=== PATIENT | male | born 1950 ===

== ENCOUNTER 2018-12-21 02:58 | Emergency (ER) | payer OTHER ==
--- OUTSIDE RECORDS SUMMARY | 2018-12-21 03:01 | XMS REPORT | Summary of Care ---
:1950 Author Organization [facility] Address [address] [place] [id number]- Encounter HQ Kehinde_garfield(FIN) [id number] Date(s): 01/17/17 - 01/17/17 [facility] [address] [address]- [phone] Discharge Disposition: Home or Self Care Attending Physician: Brent Benitez MD Referring Physician: Brent Benitez MD Vital Signs Most recent to oldest 1 2 3 [Reference Range]: Height 167.64 cm (01/15/17 10:00 AM) Blood Pressure [90-140/60-90 144/81 mmHg 142/80 mmHg 131/83 mmHg mmHg] *HI* *HI* (01/17/17 1:00 PM) (01/17/17 2:00 PM) (01/17/17 1:30 PM) Respiratory Rate [14-20 16 BRMIN 16 BRMIN 16 BRMIN BRMIN] (01/17/17 2:00 PM) (01/17/17 1:30 PM) (01/17/17 1:00 PM) Peripheral Pulse Rate 65 bpm 71 bpm 68 bpm [60-100 bpm] (01/17/17 10:51 AM) (01/17/17 10:46 AM) (01/17/17 10:41 AM) Weight 72.727 kg (01/15/17 10:00 AM) Body Mass Index 25.88 m2 (01/15/17 10:00 AM) Problem List Condition Effective Dates Status Health Status Informant Ankle fracture(Confirmed)1 Resolved Hypercholesteremia(Confirmed)2 Active Arthritis(Confirmed) Resolved Skin cancer(Confirmed) Resolved [id number]'t take anything for it Allergies, Adverse Reactions, Alerts Substance Reaction Severity Status NKDA Active Medications Ancef 2 gm, 100 mL, Route: IVPB, Drug form: INJ, ONCE, Dosing Weight 72.727, kg, Start date: 01/17/17 8:35:00 CDT, Duration: 1 doses or times, Stop date: 8:35:00 CDT, Surgical Prophylaxis Only; For patients < 120 kg, ABX Indication: Surgical Prophy... Notes: Same as: Ancef Start Date: 01/17/17 Stop Date: 01/17/17 Status: CompletedANES flumazenil 0.2 mg, 2 mL, Route: IVP, Drug form: INJ, PRN, Dosing Weight 72.727, kg, PRN Benzodiazepine Reversal, Initial dose, Start date: 01/17/17 10:23:00 CDT, Duration: 8 hr, Stop date: 01/17/17 18:22:00 CDT Notes: (Same as: Romazicon) Start Date: 01/17/17 Stop Date: 01/17/17 Status: CompletedANES HYDROmorphone 0.5 mg, 0.25 mL, Route: IVP, Drug form: INJ, Q5Min, Dosing Weight 72.727, kg, PRN Pain Score 7-10, Start date: 01/17/17 10:23:00 CDT, Duration: 4 doses or times, Stop date: 01/17/17 18:22:00 CDT Notes: Same as: Dilaudid Start Date: 01/17/17 Stop Date: 01/17/17 Status: CompletedANES meperidine 12.5 mg, 0.5 mL, Route: IVP, Drug form: INJ, Q30Min, Dosing Weight 72.727, kg, PRN Other -See Comment, For shivering, Start date: 01/17/17 10:23:00 CDT, Duration: 2 doses or times, Stop date: 01/17/17 18:22:00 CDT Notes: (Same as: Demerol) "Use Precaution in Elderly, Seizure disorders, and Renal impairment" Start Date: 01/17/17 Stop Date: 01/17/17 Status: CompletedANES naloxone 0.4 mg, 1 mL, Route: IVP, Drug form: INJ, Q2MIN, Dosing Weight 72.727, kg, PRN Narcotic Reversal, Start date: 01/17/17 10:23:00 CDT, Duration: 8 doses or times , Stop date: 01/17/17 18:22:00 CDT Notes: Same as Narcan Start Date: 01/17/17 Stop Date: 01/17/17 Status: CompletedANES ondansetron 4 mg, 2 mL, Route: IVP, Drug form: INJ, ONCE, Dosing Weight 72.727, kg, PRN Nausea & Vomiting, Start date: 01/17/17 10:23:00 CDT Notes: (Same as: Milla) MEDICATION WASTE Product Size: 4 mgProduct Wasted: ___ mg Start Date: 01/17/17 Stop Date: 01/18/17 Status: Discontinuedaspirin 325 mg tablet 325 mg=1 tab, PO, BID, # 28 tab, 0 Refill(s) Start Date: 01/17/17 Stop Date: 01/31/17 Status: Orderedaspirin 81 mg tablet, enteric coated 81 mg=1 tab, PO, Daily, # 90 tab, 3 Refill(s) Start Date: 01/15/17 Stop Date: 01/17/17 Status: DiscontinuedEPA Fish Oil 1000 mg oral capsule 1,000 mg=1 cap, PO, TID, 0 Refill(s) Start Date: 01/15/17 Status: OrderedLactated Ringers 1,000 mL 1,000 mL, Rate: 40 ml/hr, Infuse over: 25 hr, Route: IV, Dosing Weight 72.727 kg , Total Volume: 1,000, Start date: 01/17/17 8:35:00 CDT, Duration: 30 day, Stop date: 02/16/17 8:34:00 CDT Start Date: 01/17/17 Stop Date: 01/18/17 Status: DiscontinuedNorco 5/325 oral tablet 1 tab, PO, Q4-6H, PRN, # 30 tab, 0 Refill(s) Start Date: 01/15/17 Stop Date: 01/17/17 Status: DiscontinuedRopivacaine 0.2% 400ML OnQ CB004 400 mL Dosing: Per Nerve Block Dosing Order, Route: NERVE BLOCK, Start date: 01/17/17 10:30:00 CDT 400 mL, Drug Form: INJ, Dosing Weight 72.727, kg, Duration: 30 day , Stop date: 02/16/17 10:29:00 CDT Notes: Final concentration: Ropivacaine 0.2% 400 ml Start Date: 01/17/17 Stop Date: 01/18/17 Status: DiscontinuedSunkist Vitamin C Daily, 0 Refill(s) Start Date: 01/15/17 Stop Date: 01/17/17 Status: DiscontinuedZofran 4 mg oral tablet 4 mg=1 tab, PO, Q8H, PRN Nausea/vomiting, # 30 tab, 0 Refill(s) Start Date: 01/17/17 Stop Date: 01/27/17 Status: Ordered Results No data available for this section Immunizations No data available for this section Procedures Procedure Date Related Diagnosis Body Site Cholecystectomy 1986 Hernia repair Social History Social History Type Response Substance Abuse Use: None. Exercise Exercise type: Walking, surf a few days a week.1 Alcohol Never Smoking Status Never smoker; Lives with someone who smokes; Cigarette Smoking Last 365 Days No; Reg Smoking Cessation Counseling No 1able to climb two flights of stairs w/out SOB Assessment and Plan Extracted from: Title: ORS F&A Discharge Author: Tomás Armenta MD Date: 01/17/17 Orthopedic Surgery Discharge Summary Admit Date: 01/17/2017 Discharge Date: 01/17/2017 Admitting Physician of Record: Dr. Brent Benitez Admitting Diagnosis: Left ankle fracture Discharge Diagnosis: Left ankle fracture In-House Consultations: none Surgeries/Procedures: LEFT LATERAL MALLEOLAR ANKLE FRACTURE OPEN REDUCTION INTERNAL FIXATION, OPEN TREATMENT OF TALUS FRACTURE WITH FRACTURE DEBRIDEMENT HPI: 66-year-old male presents with complaints of left ankle pain after rolling his ankle on 01/03/2017. Patient had difficulty walking afterwards. He presented to the [place] [facility] an d was found to have a fracture at the distal fibula and possibly representing a superior peroneal retinacular avulsion Hospital Course: Underwent the above mentioned procedures and tolerated them well. Discharge Disposition: home Discharge Condition: stable Discharge Diet: Regular Discharge Activity: NWB LLE Discharge Medications: Please see medical reconciliation for discharge Pending Procedures: none Special Instructions: Wound care- keep all dressing clean and dry. No driving until cleared by physician. Notify MD or return to ED if you develop fever <101, severe nausea/vomiting, severe pain uncontrolled with medication, signs of infection of surrounding wounds Follow Up: 1.) Dr. Benitez in 2 weeks Please call [phone] for an appointment. Tomás Armenta M.D. Orthopedic Surgery resident [facility] Extracted from: Title: Clinical Document Author: Brent Benitez MD Date: Chief Complaint: Left ankle pain History of Present Illness: 66-year-old male presents with complaints of left ankle pain after rolling his ankle on 01/03/2017. Patient had difficulty walking afterwards. He presented to the [facility] bone and joint office and was found to have a fracture at the distal fibula and possibly representing a superior peroneal retinacular avulsion. He is referred to me for further management. He is p laced into a trilaminar splint is been nonweightbearing with crutches. Past Medical History: Denies Past Surgical History: Hernia repair in 2009, cholecystectomy 1979 Social History: Negative for tobacco, alcohol or drug use Family History: Diabetes, heart disease and stroke Medications: Fish oil, vitamin C and aspirin Allergies: No known drug allergies 10 point review of systems reviewed with the patient and otherwise negative unless stated in the HPI. Physical Exam: General: Alert and oriented, No acute distress. Eye: Extraocular movements are intact. HENT: Normocephalic. Neck: Supple. Respiratory: Respirations are non-labored, Symmetrical chest wall expansion. Cardiovascular: Normal peripheral perfusion. Gastrointestinal: Soft. Integumentary: See Above. Neurologic: Alert, Oriented, Normal sensory. Musculoskeletal: Examination the left foot and ankle reveals no deformity. He has significant swelling at the lateral aspect of his ankle. No tenderness of the deltoid ligament. No tenderness over the syndesmosis or proximal fibula. He has tenderness about the lateral malleolus . I'm unable to palpate his peroneal tendons . He also has tenderness with attempted hindfoot range of motion. He avila s palpable pedal pulses. No open wounds are present. Foot and ankle motor intact with plantar flexion/dorsiflexion/inversion/eversion. Sensation is intact to light touch at superficial peroneal, deep peroneal, tibial, sural, and saphenous nerves. Cognition and Speech: Oriented, Speech clear and coherent, Functional cognition intact. Psychiatric: Cooperative, Appropriate mood & affect, Normal judgment, Non- suicidal. Imagin views of the left ankle reveals a lateral malleolar fracture likely resulting from a avulsion of the superior peroneal retinaculum. CT scan of the left ankle reveals a comminuted lateral process talus fracture. Likely avulsion of the screw peroneal retinaculum involving a fracture at the posterior lateral aspect of the distal fibula. Impression: 1. Left comminuted lateral process talus fracture 2. Left superior peroneal retinacular avulsion involving a fracture of the posterior lateral distal fibula. Plan: I discussed the diagnosis and treatment options with the patient today. My recommendation is for continue nonweightbearing. We placed him into a tall Cam Walker boot. He'll keep his leg el evated. He has significant swelling which will need to resolve prior to surgical intervention. I reviewed the CT scan with the patient over the phone. I recommended open treatment of his distal fibul a fracture involving the superior peroneal retinaculum. In addition we've discussed debridement of his lateral process of the talus fracture. Unfortunately this fracture is extremely comminuted we rosita l not be able to fixate any of the fragments. He understands that he is high risk for arthritis of the subtalar joint. Patient like to proceed with the proposed procedures.Risks were explained includi ng, but not limited to: pain, bleeding, infection, wound complication, nonunion , malunion, need for additional procedures, risk of anesthesia and risk of blood clots.
--- OUTSIDE RECORDS SUMMARY | 2018-12-21 03:01 | XMS REPORT | Summary of Care ---
:1950 Author Organization [facility] [place] Encounter HQ Irlanda(FIN) [id number] Date(s): 03/21/17 - 04/19/17 [facility] [place] Discharge Disposition: Home or Self Care Attending Physician: Brent Benitez MD Vital Signs No data available for this section Problem List Condition Effective Dates Status Health Status Informant Ankle fracture(Confirmed)1 Resolved Hypercholesteremia(Confirmed)2 Active Arthritis(Confirmed) Resolved Skin cancer(Confirmed) Resolved [id number]'t take anything for it Allergies, Adverse Reactions, Alerts Substance Reaction Severity Status NKDA Active Medications No data available for this section Results No data available for this section [...] of stairs w/out SOB Assessment and Plan No data available for this section
--- OUTSIDE RECORDS SUMMARY | 2018-12-21 03:01 | XMS REPORT | Continuity of Care Document ---
:1950 Author Organization [facility] Care Team Providers Name Role Phone [facility] [employer] Unavailable Unavailable Problems Problem Status Onset Classification Date Comments Source Date Reported Displaced fracture of 09/25/2017 [facility] lateral malleolus of 018 [place] left fibula, subsequent encounter for closed fracture with routine healing LT ANKLE Active [facility] 017 [place] LEFT ANKLE Active [facility] Summer 017 [place] LEFT LATERAL MALLEOLAR Active [facility] ANKLE FRACTURE, L 017 [place] Displaced fracture of 09/25/2017 [facility] body of left talus, [place] subsequent encounter for fracture with routine healing Pain in left ankle 09/25/2017 [facility] [place] Stiffness of left 09/25/2017 [facility] ankle, not elsewhere [place] classified Muscle weakness 09/25/2017 [facility] (generalized) [place] Abnormal posture 08/25/2017 [facility] [place] Other abnormalities of 09/25/2017 [facility] gait and mobility [place] Fracture of ankle Resolved Problem 09/25/2017 left Ortho (disorder) and Spine,[facility] Hypercholesterolemia Active Problem 09/25/2017 doesn't Ortho (disorder) take and anything Spine,[facility] for it [place] Arthritis (disorder) Resolved Problem 09/25/2017 [facility] Malignant neoplasm of Resolved Problem 09/25/2017 Ortho skin (disorder) and Spine,[facility] Medications Medication Details Route Status Patient Ordering Order Source Instructions Provider Date Ondansetron 4 4 mg=1 tab, PO, Active MG Oral Tablet Q8H, PRN 2017 Ortho [Zofran] Nausea/vomiting, and # 30 tab, 0 Spine Refill(s) Aspirin 325 MG 325 mg=1 tab, Active Oral Tablet PO, BID, # 28 2017 Ortho tab, 0 Refill(s) and Spine ropivacaine Dosing: Per No Longer Nerve Block Active 2016 Ortho Dosing Order, and Route: NERVE Spine BLOCK, Start date: 01/17/17 10:30:00 CDT 400 mL, Drug Form: INJ, Dosing Weight 72.727, kg, Duration: 30 day, Stop date: 02/16/17 10:29:00 CDTNotes: Final concentration: Ropivacaine 0.2% 400 ml Flumazenil 0.2 mg, 2 mL, Inactive Route: IVP, Drug 2016 Ortho form: INJ, PRN, and Dosing Weight Spine 72.727, kg, PRN Benzodiazepine Reversal, Initial dose, Start date: 01/17/17 10:23:00 CDT, Duration: 8 hr, Stop date: 01/17/17 18:22:00 CDTNotes: (Same as: Romazicon) Naloxone 0.4 mg, 1 mL, Inactive Route: IVP, Drug 2016 Ortho form: INJ, and Q2MIN, Dosing Spine Weight 72.727, kg, PRN Narcotic Reversal, Start date: 01/17/17 10:23:00 CDT, Duration: 8 doses or times, Stop date: 01/17/17 18:22:00 CDTNotes: Same as Narcan Meperidine 12.5 mg, 0.5 mL, Inactive Route: IVP, Drug 2016 Ortho form: INJ, and Q30Min, Dosing Spine Weight 72.727, kg, PRN Other -See Comment, For shivering, Start date: 01/17/17 10:23:00 CDT, Duration: 2 doses or times, Stop date: 01/17/17 18:22:00 CDTNotes: (Same as: Demerol) "Use Precaution in Elderly, Seizure disorders, and Renal impairment" Hydromorphone 0.5 mg, 0.25 mL, Inactive Route: IVP, Drug 2016 Ortho form: INJ, and Q5Min, Dosing Spine Weight 72.727, kg, PRN Pain Score 7-10, Start date: 01/17/17 10:23:00 CDT, Duration: 4 doses or times, Stop date: 01/17/17 18:22:00 CDTNotes: Same as: Dilaudid Ondansetron 4 mg, 2 mL, No Longer Route: IVP, Drug Active 2016 Ortho form: INJ, ONCE, and Dosing Weight Spine 72.727, kg, PRN Nausea & Vomiting, Start date: 01/17/17 10:23:00 CDTNotes: (Same as: Milla) MEDICATION WASTE Product Size: 4 mg Product Wasted: ___ mg Lactated 1,000 mL, Rate: No Longer Ringers 1,000 40 ml/hr, Infuse Active 2016 Ortho mL over: 25 hr, and Route: IV, Spine Dosing Weight 72.727 kg, Total Volume: 1,000, Start date: 01/17/17 8:35:00 CDT, Duration: 30 day, Stop date: 02/16/17 8:34:00 CDT Ancef 2 gm, 100 mL, Inactive Route: IVPB, 2016 Ortho Drug form: INJ, and ONCE, Dosing Spine Weight 72.727, kg, Start date: 01/17/17 8:35:00 CDT, Duration: 1 doses or times, Stop date: 01/17/17 8:35:00 CDT, Surgical Prophylaxis Only; For patients Notes: Same as: Ancef Acetaminophen 1 tab, PO, No Longer 325 MG / Q4-6H, PRN, # 30 Active 2016 Ortho Hydrocodone tab, 0 Refill(s) and Bitartrate 5 MG Spine Oral Tablet [[place] 5/325] Sunkist Vitamin Daily, 0 No Longer C Refill(s) Active 2016 Ortho and Spine EPA Fish Oil 1,000 mg=1 cap, Active 1000 mg oral PO, TID, 0 2016 Ortho capsule Refill(s) and Spine aspirin 81 mg 81 mg=1 tab, PO, No Longer tablet, enteric Daily, # 90 tab, Active 2016 Ortho coated 3 Refill(s) and Spine Allergies, Adverse Reactions, Alerts No Known Medication Allergies Immunizations No Data Provided for This Section Results No Data Provided for This Section Pathology Reports No Data Provided for This Section Diagnostic Reports No Data Provided for This Section Consultation Notes No Data Provided for This Section Discharge Summaries No Data Provided for This Section History and Physicals No Data Provided for This Section Vital Signs Vital Sign Value Date Comments Source Systolic (mm Hg) 144 01/17/2017 [facility] Diastolic (mm Hg) 81 01/17/2017 [facility] Respitory Rate 16 01/17/2017 [facility] Respitory Rate 16 01/17/2017 [facility] Systolic (mm Hg) 142 01/17/2017 [facility] Diastolic (mm Hg) 80 01/17/2017 [facility] Respitory Rate 16 01/17/2017 [facility] Systolic (mm Hg) 131 01/17/2017 [facility] Diastolic (mm Hg) 83 01/17/2017 [facility] Heart Rate 65 01/17/2017 [facility] Heart Rate 71 01/17/2017 [facility] Heart Rate 68 01/17/2017 [facility] Height 167.64 cm 01/15/2017 [facility] BMI Calculated 25.88 01/15/2017 [facility] Weight 72.727 01/15/2017 [facility] Spine Encounters Location Location Encounter Encounter Reason Attending ADM DC Status Source Details Type Number For Provider Date Date Visit [id number] Brent 01/17 01/18 [facility] [id number] Brent 02/19 03/21 [facility] [place] [facility] [place] [facility] [id number] Brent 03/21 04/20 [facility] [place] [facility] [place] [facility] [id number] Brent 04/20 05/20 [facility] [place] [facility] Summer [facility] Therapy [id number] Brent 05/21 06/20 [facility] Patients [facility] [place] Procedures Procedure Code Date Perfomer Comments Source Cholecystectomy [id number] 04/23/1985 Ortho and Spine,[facility] Hernia repair [id number] Ortho and Spine,[facility] Assessment and Plan Assessment and Plan Date Source Extracted from:Title: ORS F&A Discharge 01/18/2017 Ortho and Spine Author: Tomás Armenta MD Date: 01/17/17 Orthopedic [...] difficulty walking afterwards. He presented to the [place] bone and joint office an d was [...] Dr. Benitez in 2 weeks Please call [phone] for an appointment. Tomás Armenta M.D. Orthopedic Surgery resident [facility] Extracted from:Title: Clinical Document Author: Brent Benitez MD Date: 01/16/17 Chief Complaint: Left ankle pain History of Present Illness: 66-year-old male presents with complaints of left ankle pain after rolling his ankle on 01/03/2017. Patient had difficulty walking afterwards. He presented to the [facility] bone and joint office and was found [...] with attempted hindfoot range of motion. He has palpable pedal pulses. No open wounds are present. Foot and ankle motor intact with plantar flexion/dorsiflexion/inversion/eversion. Sensation is intact to light touch at superficial peroneal, deep peroneal, tibial, sural, and saphenous nerves. Cognition and Speech: Oriented, Speech clear and coherent, Functional cognition intact. Psychiatric: Cooperative, Appropriate mood and affect, Normal judgment, Non- suicidal. Imagin views [...] tall Cam Walker boot. He'll keep his l eg elevated. He has significant swelling which will need to resolve prior to surgical intervention. I reviewed the CT scan with the patient over the phone. I recommended open treatment of his distal fibula fracture involving the superior peroneal retinaculum. In addition we' ve discussed debridement of his lateral process of the talus fracture. Unfortunately this fracture is extremely comminu tika we will not be able to fixate any of the fragments. He understands that he is high risk for arthritis of the subtalar joint. Patient like to proceed with the proposed procedures.Risks were explain ed including, but not limited to: pain, bleeding, infection, wound complication , nonunion, malunion, need for additional procedures, risk of anesthesia and risk of blood clots. Plan of Care No Data Provided for This Section Social History Social History Date Source Social History TypeResponse 01/15/2017 [facility] [place] Substance Abuse Use: None. Exercise Exercise type: Walking, surf a few days a week.1 Alcohol Never Smoking Status Never smoker; Lives with someone who smokes; Cigarette Smoking Last 365 Days No ; Reg Smoking Cessation Counseling No entered on: 01/17/17 1able to climb two flights of stairs w/out SOB Social History TypeResponse 01/15/2017 [facility] Substance Abuse Use: None. Exercise Exercise type: Walking, surf a few days a week.1 Alcohol Never Smoking Status Never smoker; Lives with someone who smokes; Cigarette Smoking Last 365 Days No ; Reg Smoking Cessation Counseling No 1able to climb two flights of stairs w/out SOB Family History No Data Provided for This Section Advance Directives No Data Provided for This Section Functional Status No Data Provided for This Section
--- OUTSIDE RECORDS SUMMARY | 2018-12-21 03:01 | XMS REPORT | Summary of Care ---
:1950 Author Organization [facility] [place] Address Unavailable , Encounter ASHLEIGH Fournier(KIKE) [id number] Date(s): 04/20/17 - 05/19/17 [facility] [place] Encounter Diagnosis Displaced fracture of lateral malleolus of left fibula, subsequent encounter for closed fracture with routine healing (Final) - 05/23/17 Displaced fracture of body of left talus, subsequent encounter for fracture with routine healing (Final) - Pain in left ankle and joints of left foot (Final) - Stiffness of left ankle, not elsewhere classified (Final) - Muscle weakness (generalized) (Final) - Abnormal posture (Final) - Other abnormalities of gait and mobility (Final) - Discharge Disposition: Home or Self Care Attending Physician: Brent Benitez MD Vital Signs No data available for this section Problem List Condition Effective Dates Status Health Status Informant Ankle fracture(Confirmed)1 Resolved Hypercholesteremia(Confirmed)2 Active Arthritis(Confirmed) Resolved Skin cancer(Confirmed) Resolved [id number]'t take anything for it Allergies, Adverse Reactions, Alerts Substance Reaction Severity Status NKDA Active Medications No data available for this section Results No data available for this section Immunizations No data available for this section Procedures Procedure Date Related Diagnosis Body Site Status Cholecystectomy 1985 Completed Hernia repair Completed Social History Social History Type Response Substance Abuse Use: None. Exercise Exercise type: Walking, surf a few days a week.1 Alcohol Never Smoking Status Never smoker; Lives with someone who smokes; Cigarette Smoking Last 365 Days No; Reg Smoking Cessation Counseling No entered on: 01/17/17 1able to climb two flights of stairs w/out SOB Assessment and Plan No data available for this section
--- OUTSIDE RECORDS SUMMARY | 2018-12-21 03:01 | XMS REPORT | Summary of Care ---
:1950 Author Organization [facility] [place] Encounter HQ [place](FIN) [id number] Date(s): 02/19/17 - 03/20/17 [facility] [place] Discharge Disposition: Home or Self Care Attending Physician: Brent Benitez MD Vital Signs No data available for this section Problem List Condition Effective Dates Status Health Status Informant Ankle fracture(Confirmed)1 Resolved Hypercholesteremia(Confirmed)2 Active Arthritis(Confirmed) Resolved Skin cancer(Confirmed) Resolved [id number]'t take anything for it Allergies, Adverse Reactions, [...]
--- OUTSIDE RECORDS SUMMARY | 2018-12-21 03:01 | XMS REPORT | Summary of Care ---
:[address] [facility] [place] Address Unavailable , Encounter [place](KIKE) [phone] Date(s): 05/21/17 - 06/19/17 [facility] [place] Encounter Diagnosis Displaced fracture of lateral malleolus of left fibula, subsequent encounter for closed fracture with routine healing (Final) - 06/24/17 Pain in left ankle and joints of left foot (Final) - Stiffness of left ankle, not elsewhere classified (Final) - Displaced fracture of body of left talus, subsequent encounter for fracture with routine healing (Final) - Other abnormalities of gait and mobility (Final) - Muscle weakness (generalized) (Final) - Discharge Disposition: Home or Self Care Attending Physician: Brent Benitez MD Vital Signs No data available for this section Problem List Condition Effective Dates Status Health Status Informant Ankle fracture(Confirmed)1 Resolved Hypercholesteremia(Confirmed)2 Active Arthritis(Confirmed) Resolved Skin cancer(Confirmed) Resolved [id number] take anything for it Allergies, Adverse Reactions, [...]
[2018-12-21] MEDS ORDERED: MAGNESIUM SULFATE 1 gm IVPB 1 GM/100 ML BAG IV ONE (03:29)
[2018-12-21] MEDS ORDERED: GLUCAGON 1 MG/VIAL ONE ×2 (03:29→04:15)
--- NOTE | 2018-12-21 05:22 | EDPHYS ---
Physician Documentation [facility] Name: Johnathan Troy Age: 68 yrs Sex: Male : 1950 Arrival Date: 12/21/2018 Time: 03:02 Bed 4 Private MD: ED Physician Terrence Lozano HPI: 12/21 03:22 This 68 yrs old Male presents to ER via Unassigned with complaints of FEELS rn FOOD STUCK IN CHEST AREA. 03:22 The patient or guardian reports the patient has a suspected foreign body, of the rn throat. The reported likely foreign body is piece of meat. Onset: The symptoms/episode began/occurred today. Current symptoms: foreign body sensation. The patient has experienced a previous episode. The patient has not recently seen a physician. Reports piece of steak stuck in esophagus, has happened once before, doesn't take daily antacid medication for known acid reflux, slow progression of dysphagia over last month. Does not happen with liquids. Reports threw up a small piece of the meat prior to arrival. . Historical: - Allergies: 03:27 No Known Allergies; lp1 - Home Meds: 03:27 aspirin 81 mg Oral TbEC 1 tab once daily [Active]; lp1 - PMHx: 03:27 None; lp1 - PSHx: 03:27 Cholecystectomy; Hernia repair; lp1 - Immunization history:: Adult Immunizations up to date. - Social history:: Smoking status: Patient/guardian denies using tobacco. - Family history:: not pertinent. - Ebola Screening: : No symptoms or risks identified at this time. - Hospitalizations: : No recent hospitalization is reported. ROS: 03:22 Constitutional: Negative for fever, chills, and weight loss, Eyes: Negative for injury, rn pain, redness, and discharge, ENT: Negative for injury, pain, and discharge, Neck: Negative for injury, pain, and swelling, Cardiovascular: Negative for chest pain, palpitations, and edema, Respiratory: Negative for shortness of breath, cough, wheezing, and pleuritic chest pain, Abdomen/GI: + esophageal foreign body Neuro: Negative for headache, weakness, numbness, tingling, and seizure. Exam: 03:22 Constitutional: This is a well developed, well nourished patient who is awake, alert, rn and in no acute distress. Ambulatory to room without difficulty or assistance. Head/Face: Normocephalic, atraumatic. ENT: MMM, no stridor Respiratory: No increased work of breathing, no retractions or nasal flaring. Vital Signs: 03:25 BP 163 / 71; Pulse 66; Resp 18; Temp 98.3(O); Pulse Ox 100% on R/A; Weight 71.67 kg; lp1 Height 5 ft. 6 in. (167.64 cm); Pain 0/10; 04:00 BP 159 / 82; Pulse 72; Resp 16; Pulse Ox 99% on R/A; lp1 04:27 BP 148 / 75; Pulse 76; Resp 16; Pulse Ox 100% on R/A; lp1 05:00 BP 148 / 77; Pulse 80; Resp 18; Pulse Ox 99% on R/A; lp1 05:47 BP 148 / 80; Pulse 73; Resp 18; Temp 97.7(TE); Pulse Ox 99% on R/A; Pain 0/10; lp1 06:58 BP 141 / 79; Pulse 67; Resp 16; Pulse Ox 99% on R/A; lp1 03:25 Body Mass Index 25.50 (71.67 kg, 167.64 cm) lp1 MDM: 03:14 Patient medically screened. rn 05:08 Data reviewed: vital signs, nurses notes, and as a result, I will admit patient. rn Counseling: I had a detailed discussion with the patient and/or guardian regarding: the historical points, exam findings, and any diagnostic results supporting the discharge/admit diagnosis, the need to transfer to another facility, [facility] does not immediately have the required specialist. Response to treatment: There is no appreciated change of the patient's symptoms at this time. ED course: Given magnesium and 2 doses of glucagon without alleviation of symptoms. Still feels steak stuck and unable to tolerate liquids. . 12/21 03:21 Order name: IV Start; Complete Time: 03:25 rn Administered Medications: 03:35 Drug: Glucagon 1 mg Route: IVP; Site: right antecubital; lp1 04:13 Follow up: Response: No change in condition 1 03:35 Drug: Magnesium Sulfate 1 grams Route: IVPB; Infused Over: 1 hrs; Site: right lp1 antecubital; 04:40 Follow up: IV Status: Completed infusion; IV Intake: 100ml lp1 04:22 Drug: Glucagon 1 mg Route: IVP; Site: right antecubital; lp1 05:30 Follow up: Response: No change in condition lp1 Disposition: 12/21/18 05:21 Transfer ordered to [facility]. Diagnosis is Esophageal obstruction - Steak. - Reason for transfer: Higher level of care. - Accepting physician is Dr Jag Kruse. - Condition is Stable. - Problem is new. - Symptoms are unchanged. Signatures: Terrence Lozano MD MD rn HernandezGayle RN RN lp1 Corrections: (The following items were deleted from the chart) 05:21 05:21 12/21/2018 05:21 Transfer ordered to [facility]. Diagnosis is rn Esophageal obstruction. Reason for transfer: Higher level of care. Accepting physician is . Condition is Stable. Problem is new. Symptoms are unchanged. rn 05:34 05:21 12/21/2018 05:21 Transfer ordered to [facility]. Diagnosis is rn Esophageal obstruction - Steak. Reason for transfer: Higher level of care. Accepting physician is . Condition is Stable. Problem is new. Symptoms are unchanged. rn 06:58 05:34 12/21/2018 05:21 Transfer ordered to [facility]. Diagnosis is lp1 Esophageal obstruction - Steak. Reason for transfer: Higher level of care. Accepting physician is Dr Jag Kruse. Condition is Stable. Problem is new. Symptoms are unchanged. rn
--- NOTE | 2018-12-21 05:22 | ER ---
Nurse's Notes [facility] Name: Johnathan Troy Age: 68 yrs Sex: Male : 1950 Arrival Date: 12/21/2018 Time: 03:02 Bed 4 Private MD: Diagnosis: Esophageal obstruction-Steak Presentation: 12/21 03:30 Presenting complaint: Patient states: Ate some steak at dinner tonight at 2000 and lp1 states "it feels like a piece is stuck in my chest"; States attempting to drink but not passing; Patient spitting saliva in cup; No apparent respiratory distress during triage. Transition of care: patient was not received from another setting of care. Onset of symptoms was December 20, 2018 at 20:00. Risk Assessment: Do you want to hurt yourself or someone else? Patient reports no desire to harm self or others. Initial Sepsis Screen: Does the patient meet any 2 criteria? No. Patient's initial sepsis screen is negative. Does the patient have a suspected source of infection? No. Patient's initial sepsis screen is negative. Care prior to arrival: None. 03:30 Method Of Arrival: Ambulatory lp1 03:30 Acuity: JACINTA 2 lp1 Historical: - Allergies: 03:27 No Known Allergies; lp1 - Home Meds: 03:27 aspirin 81 mg Oral TbEC 1 tab once daily [Active]; lp1 - PMHx: 03:27 None; lp1 - PSHx: 03:27 Cholecystectomy; Hernia repair; lp1 - Immunization history:: Adult Immunizations up to date. - Social history:: Smoking status: Patient/guardian denies using tobacco. - Family history:: not pertinent. - Ebola Screening: : No symptoms or risks identified at this time. - Hospitalizations: : No recent hospitalization is reported. Screenin:26 Abuse screen: Denies threats or abuse. Denies injuries from another. Nutritional lp1 screening: No deficits noted. Tuberculosis screening: No symptoms or risk factors identified. Fall Risk None identified. Assessment: 03:00 General: Appears in no apparent distress. comfortable, Behavior is calm, cooperative. lp1 Pain: Denies pain. Neuro: Level of Consciousness is awake, alert, obeys commands, Oriented to person, place, time, situation. Cardiovascular: Patient's skin is warm and dry. Respiratory: Airway is patent Respiratory effort is even, unlabored, Respiratory pattern is regular, Breath sounds are clear bilaterally. GI: No signs and/or symptoms were reported involving the gastrointestinal system. : No signs and/or symptoms were reported regarding the genitourinary system. EENT: Reports Feeling like food is stuck in chest. Derm: Skin is pink, warm \\T\\ dry. Musculoskeletal: No deficits noted. 04:13 Reassessment: Patient states no improvement; Provider notified; Verbal order for lp1 Glucagon 1mg IV. 04:23 Reassessment: Patient states "my saliva isn't backing up anymore so it might be lp1 helping". General: Appears. 04:55 Reassessment: Patient attempting to drink soda at this time, states "it still feels lp1 like it's getting stuck"; Provider notified. 05:15 Reassessment: Patient appears in no apparent distress at this time. Patient is alert, lp1 oriented x 3, equal unlabored respirations, skin warm/dry/pink. Dr. Lozano at bedside to discuss plan of care with patient and . 05:51 Reassessment: Attempted to call report at this time, prompted to call back in 10 lp1 minutes per transfer center of [facility]. 06:13 Reassessment: report given to Gildardo Dowd RN for patient to transfer to [facility] [address] 16 tower bed 1639. Vital Signs: 03:25 BP 163 / 71; Pulse 66; Resp 18; Temp 98.3(O); Pulse Ox 100% on R/A; Weight 71.67 kg; 1 Height 5 ft. 6 in. (167.64 cm); Pain 0/10; 04:00 BP 159 / 82; Pulse 72; Resp 16; Pulse Ox 99% on R/A; lp1 04:27 BP 148 / 75; Pulse 76; Resp 16; Pulse Ox 100% on R/A; lp1 05:00 BP 148 / 77; Pulse 80; Resp 18; Pulse Ox 99% on R/A; lp1 05:47 BP 148 / 80; Pulse 73; Resp 18; Temp 97.7(TE); Pulse Ox 99% on R/A; Pain 0/10; lp1 06:58 BP 141 / 79; Pulse 67; Resp 16; Pulse Ox 99% on R/A; lp1 03:25 Body Mass Index 25.50 (71.67 kg, 167.64 cm) lp1 ED Course: 03:00 Patient has correct armband on for positive identification. Placed in gown. lp1 03:02 Patient arrived in ED. am2 03:14 Terrence Lozano MD is Attending Physician. rn 03:25 Gayle Hernandez RN is Primary Nurse. lp1 03:25 Inserted saline lock: 20 gauge in right antecubital area, using aseptic technique. lp1 03:26 Arm band placed on. lp1 04:13 Triage completed. lp1 05:49 No provider procedures requiring assistance completed. lp1 06:58 Patient transferred, IV remains in place. lp1 Administered Medications: 03:35 Drug: Glucagon 1 mg Route: IVP; Site: right antecubital; lp1 04:13 Follow up: Response: No change in condition lp1 03:35 Drug: Magnesium Sulfate 1 grams Route: IVPB; Infused Over: 1 hrs; Site: right lp1 antecubital; 04:40 Follow up: IV Status: Completed infusion; IV Intake: 100ml lp1 04:22 Drug: Glucagon 1 mg Route: IVP; Site: right antecubital; lp1 05:30 Follow up: Response: No change in condition lp1 Intake: 04:40 IV: 100ml; Total: 100ml. lp1 Outcome: 05:21 ER care complete, transfer ordered by . rn 05:49 Condition: stable lp1 05:49 Instructed on the need for transfer. 06:58 Transferred by ground EMS to [facility], Transfer form completed. lp1 X-rays sent w/ patient. 06:58 Patient left the ED. lp1 Signatures: Terrence Lozano MD MD rn Pena, Laura, RN RN lp1 Rosa Isela Galindo am2
== END 2018-12-21 06:58 | disposition short-term general hospital (02) ==
LOC: ER 02:58
DX: K22.2 Esophageal obstruction (principal)
CPT/HCPCS: 96365; 96375; 99285; J1610 ×2; J3475